=== PATIENT | female | born 1995 | race Caucasian/White ===

== ENCOUNTER 2018-06-01 01:17 | Emergency (ER) | payer OTHER ==
[2018-06-01] MEDS ORDERED: Ondansetron 4 MG/2 ML SDV IVPUSH ONE (01:34)
--- NOTE | 2018-06-01 01:38 | EDM.PDOC ---
ED HPI GENERAL MEDICAL PROBLEM - General Chief Complaint: Drug or Alcohol Abuse Stated Complaint: ALCOHOL OD Time Seen by Provider: 06/01/18 01:30 Source of Information: Reports: Patient, Other (Friends) History Limitations: Reports: Intoxication - History of Present Illness INITIAL COMMENTS - FREE TEXT/NARRATIVE: This is a 22-year-old female. This evening she had 6 vodka red bulls and several beers. Apparently the friends that she with work trying to keep her from falling asleep because they were concerned and they brought her to the ER. When she first arrived she seemed be somewhat anxious but now she is calm down and she wants to go to sleep. She is having some mild dry heaves but not vomiting. She denies any other acute symptoms. She is awake she is alert she does know she is in the hospital. She denies any illicit drug use tonight. - Related Data Allergies Allergy/AdvReac Type Severity Reaction Status Date / Time pollen extracts Allergy Hives Verified 06/01/18 01:24 Past Medical History - Past Health History Medical/Surgical History: Denies Medical/Surgical History Psychiatric History: Reports: Anxiety Social & Family History - Tobacco Use Smoking Status *Q: Current Every Day Smoker Years of Tobacco use: 2 Packs/Tins Daily: 1 - Caffeine Use Caffeine Use: Reports: Energy Drinks ED ROS GENERAL - Review of Systems Review Of Systems: See Below Constitutional: Denies: Fever, Chills HEENT: Reports: No Symptoms Respiratory: Reports: No Symptoms Cardiovascular: Reports: No Symptoms Endocrine: Reports: No Symptoms GI/Abdominal: Reports: Other (As per history of present illness) : Reports: No Symptoms Musculoskeletal: Reports: No Symptoms Skin: Reports: No Symptoms Neurological: Reports: No Symptoms Psychiatric: Reports: No Symptoms Hematologic/Lymphatic: Reports: No Symptoms - Physical Exam Exam: See Below Exam Limited By: Intoxication General Appearance: Alert, WD/WN, No Apparent Distress, Other (Mild gagging noted) Eye Exam: Bilateral Eye: Normal Inspection Ears: Normal External Exam Nose: Normal Inspection Throat/Mouth: Normal Inspection, Normal Lips, No Airway Compromise, Other (Mild slurred speech) Head Exam: Normocephalic Neck: Supple Respiratory/Chest: No Respiratory Distress, Lungs Clear, Normal Breath Sounds Cardiovascular: Regular Rate, Rhythm, No Murmur GI/Abdominal: Soft Neuro Exam (Abbreviated): Alert, Oriented, Other (Patient knows her friends know she is in the hospital) Back Exam: Full Range of Motion Extremities: Normal Inspection, Normal Range of Motion Psychiatric: Normal Affect, Normal Mood Skin Exam: Warm, Dry Course - Vital Signs Last Recorded V/S: Last Vital Signs Temp 97.2 F 06/01/18 01:21 Pulse 129 H 06/01/18 01:21 Resp 20 06/01/18 01:21 BP 151/68 H 06/01/18 01:21 Pulse Ox 100 06/01/18 01:21 - Orders/Labs/Meds Labs: Laboratory Tests 06/01/18 06/01/18 Range/Units 01:30 01:30 HCG, Qual Negative (NEGATIVE) Ethyl Alcohol 0.13 (0.00) gm% Meds: Medications Discontinued Medications Generic Name Dose Route Start Last Admin Trade Name Kit PRN Reason Stop Dose Admin Ondansetron HCl 4 mg 06/01/18 01:34 06/01/18 01:38 Zofran IVPUSH 06/01/18 01:35 4 mg ONETIME ONE Administration - Re-Assessments/Exams Free Text/Narrative Re-Assessment/Exam: 06/01/18 02:40 The patient had a full-blown panic attack. Now she is back to normal laughing and joking and she wants to go home. I spoke to her regarding her alcohol level and her red bull consumption and I believe is probably the combination of the alcohol and the stimulant of the red bull that is producing these panic attacks. She always has had a history of anxiety according to her friends. She feels comfortable to go home and she wants to go home. Departure - Departure Time of Disposition: 02:41 Disposition: Home, Self-Care 01 Condition: Fair Clinical Impression: Alcohol use disorder, Panic attack Alcohol intoxication Qualifiers: Complication of substance-induced condition: uncomplicated Qualified Code(s): F10.920 - Alcohol use, unspecified with intoxication, uncomplicated - Discharge Information *PRESCRIPTION DRUG MONITORING PROGRAM REVIEWED*: Not Applicable *COPY OF PRESCRIPTION DRUG MONITORING REPORT IN PATIENT ALISSA: Not Applicable Forms: ED Department Discharge Additional Instructions: No alcohol or energy drinks for the next 48 hours, go home and sleep and rest for the next 24 hours, follow-up your family doctor next week if desired, return to ER if needed
== END 2018-06-01 02:52 | disposition home or self-care (01) ==
LOC: JD.ED 01:17
DX: F41.0 Panic disorder [episodic paroxysmal anxiety] (principal); F10.120 Alcohol abuse with intoxication, uncomplicated; Y90.0 Blood alcohol level of less than 20 mg/100 ml; F17.210 Nicotine dependence, cigarettes, uncomplicated; Z91.018 Allergy to other foods
CPT/HCPCS: 36415; 84703; 96374; 99284; G0480; J2405

== ENCOUNTER 2020-05-24 16:46 | Emergency (ER) | payer OTHER ==
[2020-05-24] MEDS ORDERED: Sodium Chloride 0.9% 10 ML Syringe FLUSH PRN (17:29)
[2020-05-24] MEDS ORDERED: Sodium Chloride 0.9% 1,000 ML IV STA (17:30)
[2020-05-24] MEDS ORDERED: Ondansetron 4 MG/2 ML SDV IVPUSH ONE (17:30)
--- NOTE | 2020-05-24 17:32 | EDM.PDOC ---
ED HPI GENERAL MEDICAL PROBLEM - General Chief Complaint: Abdominal Pain Stated Complaint: R SIDE PAIN Time Seen by Provider: 05/24/20 16:48 Source of Information: Reports: Patient, RN Notes Reviewed History Limitations: Reports: No Limitations - History of Present Illness INITIAL COMMENTS - FREE TEXT/NARRATIVE: Patient is a 24-year-old female presenting to the emergency department with complaints of right lower quadrant abdominal pain since last evening. She states that the onset of symptoms last evening, she did have one episode of vomiting, but has not vomited thus far today. She describes the pain as a stabbing sensation. She is unable to stand upright without significant discomfort and states that any position changes also causes pain. She denies the possibility of as she is on the Implanon control. She is had no fever or chills. Denies diarrhea. Has had no respiratory complaints. She does feel mildly nauseous now but denies the need for pain medications. Denies any previous abdominal surgeries. 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 Right Abdominal Pain Score (Numeric/FACES): 6 - Related Data Allergies Allergy/AdvReac Type Severity Reaction Status Date / Time pollen extracts Allergy Hives Verified 05/24/20 16:58 Home Meds: Home Meds FLUoxetine [PROzac] 40 mg PO DAILY 05/24/20 [History] Ondansetron [Zofran ODT] 4 mg PO Q6H PRN #10 tab.dis 05/24/20 [Rx] Ondansetron [Zofran Odt] 8 mg PO Q6H PRN 05/24/20 [History] SUMAtriptan [Imitrex] 100 mg PO BID PRN 05/24/20 [History] guanFACINE 1 mg PO DAILY 05/24/20 [History] Past Medical History - Past Health History Medical/Surgical History: Denies Medical/Surgical History Psychiatric History: Reports: Anxiety Social & Family History - Caffeine Use Caffeine Use: Reports: Energy Drinks ED ROS GENERAL - Review of Systems Review Of Systems: See Below Constitutional: Reports: No Symptoms. Denies: Fever, Chills HEENT: Reports: No Symptoms Respiratory: Reports: No Symptoms. Denies: Shortness of Breath, Cough Cardiovascular: Reports: Dyspnea on Exertion GI/Abdominal: Reports: No Symptoms, Abdominal Pain (RLQ), Nausea, Vomiting. Denies: Diarrhea : Reports: No Symptoms Musculoskeletal: Reports: No Symptoms Skin: Reports: No Symptoms Neurological: Reports: No Symptoms Psychiatric: Reports: No Symptoms Hematologic/Lymphatic: Reports: No Symptoms Immunologic: Reports: No Symptoms ED EXAM, GI/ABD - Physical Exam Exam: See Below General Appearance: Alert, WD/WN, No Apparent Distress Respiratory/Chest: No Respiratory Distress, Lungs Clear, Normal Breath Sounds, No Accessory Muscle Use, Chest Non-Tender Cardiovascular: Normal Peripheral Pulses, Regular Rate, Rhythm, No Edema, No Gallop, No JVD, No Murmur, No Rub GI/Abdominal Exam: Normal Bowel Sounds, Soft, No Organomegaly, No Distention, No Abnormal Bruit, No Mass, Pelvis Stable, Tender (RLQ). No: Guarding, Rigid, Rebound Neurological: Alert, Oriented, CN II-XII Intact, Normal Cognition, Normal Gait, Normal Reflexes, No Motor/Sensory Deficits Psychiatric: Normal Affect, Normal Mood Skin Exam: Warm, Dry, Intact, Normal Color, No Rash Course - Vital Signs Last Recorded V/S: Last Vital Signs Temp 97.6 F 05/24/20 17:04 Pulse 69 05/24/20 17:04 Resp 14 05/24/20 17:04 BP 113/74 05/24/20 17:04 Pulse Ox 94 L 05/24/20 17:04 - Orders/Labs/Meds Orders: Active Orders 24 hr Category Date Time Status Peripheral IV Care [RC] . DIRECTED Care 05/24/20 17:29 Active Sodium Chloride 0.9% [Saline Flush] Med 05/24/20 17:29 Active 10 ml FLUSH ASDIRECTED PRN Sodium Chloride 0.9% [Saline Flush] Med 05/24/20 19:30 Active 10 ml FLUSH BOLUS Peripheral IV Insertion Adult [OM.PC] Stat Oth 05/24/20 17:29 Ordered Medication Orders Sodium Chloride (Saline Flush) 10 ml FLUSH ASDIRECTED PRN PRN Reason: Keep Vein Open Last Admin: 05/24/20 17:53 Dose: 10 ml Documented by: TOMY Sodium Chloride (Saline Flush) 10 ml FLUSH BOLUS [facility] Last Admin: 05/24/20 19:38 Dose: 10 ml Documented by: NIGEL Labs: Laboratory Tests 05/24/20 05/24/20 05/24/20 Range/Units 17:35 17:50 17:50 WBC 8.68 (3.98-10.04) K/mm3 RBC 4.85 (3.98-5.22) M/mm3 Hgb 13.4 (11.2-15.7) gm/dl Hct 42.1 (34.1-44.9) % MCV 86.8 (79.4-94.8) fl MCH 27.6 (25.6-32.2) pg MCHC 31.8 L (32.2-35.5) g/dl RDW Std Deviation 45.0 (36.4-46.3) fL Plt Count 367 (182-369) K/mm3 MPV 9.4 (9.4-12.3) fl Neut % (Auto) 52.0 (34.0-71.1) % Lymph % (Auto) 27.5 (19.3-51.7) % Nance % (Auto) 11.9 (4.7-12.5) % Eos % (Auto) 7.5 H (0.7-5.8) Baso % (Auto) 0.8 (0.1-1.2) % Neut # (Auto) 4.51 (1.56-6.13) K/mm3 Lymph # (Auto) 2.39 (1.18-3.74) K/mm3 Nance # (Auto) 1.03 H (0.24-0.36) K/mm3 Eos # (Auto) 0.65 H (0.04-0.36) K/mm3 Baso # (Auto) 0.07 (0.01-0.08) K/mm3 Sodium 143 (136-145) mEq/L Potassium 3.7 (3.5-5.1) mEq/L Chloride 103 (98-107) mEq/L Carbon Dioxide 28 (21-32) mEq/L Anion Gap 15.7 H (5-15) BUN 11 (7-18) mg/dL Creatinine 0.8 (0.55-1.02) mg/dL Est Cr Clr Drug Dosing 90.47 mL/min Estimated GFR (MDRD) > 60 (>60) mL/min BUN/Creatinine Ratio 13.8 L (14-18) Glucose 90 (74-106) mg/dL Calcium 9.5 (8.5-10.1) mg/dL Total Bilirubin 0.5 (0.2-1.0) mg/dL AST 15 (15-37) U/L ALT 24 (14-59) U/L Alkaline Phosphatase 75 (46-116) U/L C-Reactive Protein 1.6 H* (<1.0) mg/dL Total Protein 8.1 (6.4-8.2) g/dl Albumin 3.9 (3.4-5.0) g/dl Globulin 4.2 gm/dL Albumin/Globulin Ratio 0.9 L (1-2) Lipase 74 (73-393) U/L HCG, Qual (NEGATIVE) Urine Color Yellow (Yellow) Urine Appearance Slt cloudy H (Clear) Urine pH 6.0 (5.0-8.0) Ur Specific Coy > or = 1.030 (1.005-1.030) Urine Protein 1+ H (Negative) Urine Glucose (UA) Negative (Negative) Urine Ketones Negative (Negative) Urine Occult Blood Negative (Negative) Urine Nitrite Negative (Negative) Urine Bilirubin Negative (Negative) Urine Urobilinogen 0.2 (0.2-1.0) Ur Leukocyte Esterase Negative (Negative) Urine RBC 0-5 (0-5) /hpf Urine WBC 0-5 (0-5) /hpf Ur Squamous Epith Cells 20-30 H (0-5) /hpf Urine Bacteria Many H (FEW) /hpf Urine Mucus Moderate H (FEW) /hpf 05/24/20 Range/Units 17:50 WBC (3.98-10.04) K/mm3 RBC (3.98-5.22) M/mm3 Hgb (11.2-15.7) gm/dl Hct (34.1-44.9) % MCV (79.4-94.8) fl MCH (25.6-32.2) pg MCHC (32.2-35.5) g/dl RDW Std Deviation (36.4-46.3) fL Plt Count (182-369) K/mm3 MPV (9.4-12.3) fl Neut % (Auto) (34.0-71.1) % Lymph % (Auto) (19.3-51.7) % Nance % (Auto) (4.7-12.5) % Eos % (Auto) (0.7-5.8) Baso % (Auto) (0.1-1.2) % Neut # (Auto) (1.56-6.13) K/mm3 Lymph # (Auto) (1.18-3.74) K/mm3 Nance # (Auto) (0.24-0.36) K/mm3 Eos # (Auto) (0.04-0.36) K/mm3 Baso # (Auto) (0.01-0.08) K/mm3 Sodium (136-145) mEq/L Potassium (3.5-5.1) mEq/L Chloride (98-107) mEq/L Carbon Dioxide (21-32) mEq/L Anion Gap (5-15) BUN (7-18) mg/dL Creatinine (0.55-1.02) mg/dL Est Cr Clr Drug Dosing mL/min Estimated GFR (MDRD) (>60) mL/min BUN/Creatinine Ratio (14-18) Glucose (74-106) mg/dL Calcium (8.5-10.1) mg/dL Total Bilirubin (0.2-1.0) mg/dL AST (15-37) U/L ALT (14-59) U/L Alkaline Phosphatase (46-116) U/L C-Reactive Protein (<1.0) mg/dL Total Protein (6.4-8.2) g/dl Albumin (3.4-5.0) g/dl Globulin gm/dL Albumin/Globulin Ratio (1-2) Lipase (73-393) U/L HCG, Qual Negative (NEGATIVE) Urine Color (Yellow) Urine Appearance (Clear) Urine pH (5.0-8.0) Ur Specific Coy (1.005-1.030) Urine Protein (Negative) Urine Glucose (UA) (Negative) Urine Ketones (Negative) Urine Occult Blood (Negative) Urine Nitrite (Negative) Urine Bilirubin (Negative) Urine Urobilinogen (0.2-1.0) Ur Leukocyte Esterase (Negative) Urine RBC (0-5) /hpf Urine WBC (0-5) /hpf Ur Squamous Epith Cells (0-5) /hpf Urine Bacteria (FEW) /hpf Urine Mucus (FEW) /hpf Meds: Medications Generic Name Dose Route Start Last Admin Trade Name Freq PRN Reason Stop Dose Admin Sodium Chloride 10 ml 05/24/20 17:29 05/24/20 17:53 Saline Flush FLUSH 10 ml ASDIRECTED PRN Administration Keep Vein Open Sodium Chloride 10 ml 05/24/20 19:30 05/24/20 19:38 Saline Flush FLUSH 10 ml BOLUS CRESCENCIO Administration Discontinued Medications Generic Name Dose Route Start Last Admin Trade Name Kit PRN Reason Stop Dose Admin Sodium Chloride 1,000 mls @ 999 mls/hr 05/24/20 17:30 05/24/20 17:52 Normal Saline IV 05/24/20 18:30 999 mls/hr NOW STA Administration Iopamidol 100 ml 05/24/20 18:56 05/24/20 19:38 Isovue-300 (61%) IVPUSH 05/24/20 18:57 100 ml ONETIME ONE Administration Ondansetron HCl 4 mg 05/24/20 17:30 05/24/20 17:54 Zofran IVPUSH 05/24/20 17:31 4 mg ONETIME ONE Administration - Re-Assessments/Exams Free Text/Narrative Re-Assessment/Exam: Patient is a 24-year-old female presenting to the emergency department with complaints of right lower quadrant abdominal pain that began last evening. She had a single episode of vomiting last evening, but has had no further vomiting today. She has had no fever or chills. Denies possibility of . On exam, she does have tenderness to the right lower quadrant, however she has no guarding, rigidity, rebound tenderness. I ordered CBC, CMP, CRP, urinalysis, hCG, and a CT scan of the abdomen pelvis with contrast. 05/24/20 20:00 Hematology was grossly unremarkable. Urinalysis was negative for infection. CT results pending. Patient continues to deny the need for pain medications. 05/24/20 20:04 CT scan of the abdomen pelvis shows no acute abnormalities. Appendix was visualized and is normal. Discussed with patient that she may be suffering from a mild viral gastroenteritis, possible muscle strain. Recommend clear liquid diet for the next 24 hours and then advance as tolerated. I will send a prescription for Zofran to [place] [facility]. Discussed return precautions. Discharge instructions as documented. Departure - Departure Time of Disposition: 20:05 Disposition: Home, Self-Care 01 Condition: Good Clinical Impression: Abdominal pain - Discharge Information *PRESCRIPTION DRUG MONITORING PROGRAM REVIEWED*: No *COPY OF PRESCRIPTION DRUG MONITORING REPORT IN PATIENT ALISSA: No Prescriptions: Ondansetron [Zofran ODT] 4 mg PO Q6H PRN #10 tab.dis PRN Reason: Nausea/Vomiting Instructions: Abdominal Pain, Adult, [id number] Referrals: Preeti Bolanos, NON DESTRUCTIVE TESTER [Primary Care Provider] - Forms: ED Department Discharge Additional Instructions: You were seen in the emergency department today for right-sided abdominal pain since last evening. Your work-up included blood work, urinalysis, and a CT scan of your abdomen pelvis. Results of your work-up were found to be normal. As we discussed, you may be suffering from a mild viral gastroenteritis (stomach flu). Recommend clear liquid diet for the next 24 hours and advance as tolerated. A prescription for Zofran has been sent to [place] [facility] in [place]. Uses medication as needed for nausea. If his symptoms should worsen anyway, recommend return to the emergency department. If they fail to resolve over the next few days, recommend follow-up with your primary care provider. Sepsis Event Note (ED) - Evaluation Sepsis Screening Result: No Definite Risk - Focused Exam Vital Signs: Vital Signs Temp Pulse Resp BP Pulse Ox 05/24/20 17:04 97.6 F 69 14 113/74 94 L - My Orders Last 24 Hours: My Active Orders 05/24/20 17:29 Peripheral IV Care [RC] . DIRECTED Sodium Chloride 0.9% [Saline Flush] 10 ml FLUSH ASDIRECTED PRN Peripheral IV Insertion Adult [OM.PC] Stat 05/24/20 19:30 Sodium Chloride 0.9% [Saline Flush] 10 ml FLUSH BOLUS - Assessment/Plan Last 24 Hours: My Active Orders 05/24/20 17:29 Peripheral IV Care [RC] . DIRECTED Sodium Chloride 0.9% [Saline Flush] 10 ml FLUSH ASDIRECTED PRN Peripheral IV Insertion Adult [OM.PC] Stat 05/24/20 19:30 Sodium Chloride 0.9% [Saline Flush] 10 ml FLUSH BOLUS
[2020-05-24] MEDS ORDERED: Iopamidol 612 MG/ML 100 ML Bottle IVPUSH ONE (18:56)
[2020-05-24] MEDS ORDERED: Sodium Chloride 0.9% 10 ML Syringe FLUSH SCH (19:30)
--- NOTE | 2020-05-24 20:01 | CT ---
CT abdomen and pelvis Technique: Multiple axial sections were obtained from above the dome of the diaphragm inferiorly through the pubic symphysis. Intravenous and oral contrast was utilized. Delayed images were also obtained through the abdomen and pelvis. Reconstructed coronal and sagittal images were obtained. Findings: Visualized lung bases show nothing acute. Liver contains no focal abnormality. Spleen appears within normal limits. Adrenal glands show no discrete nodule. Kidneys show symmetric contrast enhancement with no hydronephrosis or mass. Delayed images show contrast within the ureters and the bladder. Pancreas appears within normal limits. Gallbladder contains no calcified gallstones. Abdominal aorta shows no aneurysm. No retroperitoneal adenopathy or mesenteric abnormalities are seen. Minimal fat-containing umbilical hernia is noted. Appendix is seen which is normal. No pelvic mass or adenopathy is appreciated. No inflammatory change or other abnormality is appreciated. Bone window settings were reviewed which show no acute abnormality. Impression: 1. Nothing acute is appreciated on CT study of the abdomen and pelvis. Diagnostic code #1
== END 2020-05-24 20:10 | disposition home or self-care (01) ==
LOC: JD.ED 16:46
DX: R10.31 Right lower quadrant pain (principal); Z91.048 Other nonmedicinal substance allergy status
CPT/HCPCS: 36415; 74177; 80053; 81001; 83690; 84703; 85025; 86140; 96374; 99284; J2405; J7030; Q9967

== ENCOUNTER 2021-05-21 09:08 | Emergency (ER) | payer OTHER | END 2021-05-21 12:14 | disposition home or self-care (01) | LOC: JD.ED 09:08 | DX: O20.9 Hemorrhage in early pregnancy, unspecified (principal); Z91.048 Other nonmedicinal substance allergy status; Z3A.01 Less than 8 weeks gestation of pregnancy | CPT/HCPCS: 36415; 76817; 76817-26; 81001; 84702; 85025; 86850; 86900; 86901; 99284; 99284-25 ==

== ENCOUNTER 2022-03-21 06:22 | Day surgery (SDC) | payer OTHER ==
[~2022-03-21 06:22] MED LIST: Lactated Ringers 1,000 ML IV SCH; Lidocaine 1%/Sod Bicarbonate in NS 8.4% 1 ML Syringe IDERM PRN; Sodium Chloride 0.9% 10 ML Syringe FLUSH PRN; Sodium Chloride 0.9% 10 ML Syringe FLUSH SCH
[2022-03-21] MEDS ORDERED: Lidocaine 1% 4 ML ONE (06:58)
[2022-03-21] MEDS ORDERED: fentaNYL 100 MCG/2 ML SDV ONE (06:58)
[2022-03-21] MEDS ORDERED: Propofol 200 MG/20 ML SDV ONE (06:58)
== END 2022-03-21 08:35 | disposition home or self-care (01) ==
LOC: JD.SDS 06:22
PROVIDERS: ATTEND Surgery
DX: K21.9 Gastro-esophageal reflux disease without esophagitis (principal); K31.89 Other diseases of stomach and duodenum; J30.9 Allergic rhinitis, unspecified; F41.9 Anxiety disorder, unspecified; F32.A Depression, unspecified; G43.909 Migraine, unspecified, not intractable, without status migrainosus; E55.9 Vitamin D deficiency, unspecified; E66.9 Obesity, unspecified; F17.210 Nicotine dependence, cigarettes, uncomplicated; Z79.899 Other long term (current) drug therapy; Z68.33 Body mass index [BMI] 33.0-33.9, adult; Z91.048 Other nonmedicinal substance allergy status
CPT/HCPCS: 43239; 81025; J2704; J3010; J7120; 00731

== ENCOUNTER 2023-04-01 01:56 | Inpatient (IN) | payer OTHER ==
[~2023-04-01 01:56] MED LIST changes: -Lactated Ringers 1,000 ML IV SCH; +Lidocaine 1% 10 ML MDV ONE; -Lidocaine 1%/Sod Bicarbonate in NS 8.4% 1 ML Syringe IDERM PRN; -Sodium Chloride 0.9% 10 ML Syringe FLUSH PRN; -Sodium Chloride 0.9% 10 ML Syringe FLUSH SCH
[2023-04-01] MEDS ORDERED: Sodium Chloride 0.9% 10 ML Syringe FLUSH PRN ×2 (02:43→18:32)
[2023-04-01] MEDS ORDERED: Nalbuphine HCl 10 MG/ 1ML Amp IVPUSH PRN (02:43)
[2023-04-01] MEDS ORDERED: Lidocaine 1% 50 ML MDV INJECT PRN (02:43)
[2023-04-01] MEDS ORDERED: Ondansetron 4 MG/2 ML SDV IVPUSH PRN ×2 (02:50→20:41)
[2023-04-01] MEDS: Lactated Ringers 1,000 ML IV SCH ×4 (03:00→18:14)
[2023-04-01 03:09] LABS: BASOPHILS ABSOLUTE AUTO 0.1 K/mm3 (0.0-0.2); BASOPHILS PERCENT AUTO 0.4 % (0.0-1.0); EOSINOPHILS ABSOLUTE AUTO 0.4 K/mm3 (0.0-0.4); EOSINOPHILS PERCENT AUTO 3.5 % (0.0-6.0); HEMATOCRIT 35.9 % (37.0-47.0); HEMOGLOBIN 11.8 gm/dl (12.0-16.0); IMMATURE GRAN ABSOLUTE AUTO 0.04 K/mm3 (0.00-0.05); IMMATURE GRAN PERCENT AUTO 0.4 % (0.0-0.4); LYMPHOCYTES ABSOLUTE AUTO 2.1 K/mm3 (1.0-4.8); MEAN CORPUSCULAR HEMOGLOBIN 28.7 pg (28.0-32.0); MEAN CORPUSCULAR HGB CONC 32.9 g/dl (32.0-36.0); MEAN CORPUSCULAR VOLUME 87.3 fl (83.0-99.0); MEAN PLATELET VOLUME 8.9 fl (9.4-12.3); MONOCYTES ABSOLUTE AUTO 1.2 K/mm3 (0.0-0.8); MONOCYTES PERCENT AUTO 10.2 % (0.0-8.0); NEUTROPHILS ABSOLUTE AUTO 7.5 K/mm3 (1.8-7.7); NEUTROPHILS PERCENT AUTO 66.5 % (41.0-71.0); PLATELET COUNT,PLT 246 K/mm3 (150-400); RED BLOOD CELL COUNT 4.11 M/mm3 (4.10-5.30); WHITE BLOOD CELL COUNT,WBC 11.28 K/mm3 (3.9-11.3)
[2023-04-01] MEDS ORDERED: ePHEDrine 50 MG/ML SDV IVPUSH PRN ×2 (04:38→22:49)
[2023-04-01] MEDS ORDERED: diphenhydrAMINE 50 MG/ML SDV IVPUSH PRN ×3 (04:38→22:49)
[2023-04-01] MEDS ORDERED: Oxytocin/Lactated Ringers 30 UNIT/500 ML BAG IV SCH ×2 (05:00→06:30)
[2023-04-01] MEDS: fentaNYL 100 MCG/2 ML SDV EPIDUR PRN ×3 (07:23→13:35)
[2023-04-01] MEDS: Bupivacaine/fentaNYL/NS 100 ML Bag EPIDUR PRN ×2 (07:25→13:55)
[2023-04-01] MEDS ORDERED: Sodium Chloride 0.9% 10 ML Syringe FLUSH SCH ×2 (09:00→21:00)
[2023-04-01] MEDS ORDERED: dexmedeTOMIDine HCl 200 MCG/2 ML SDV ONE (09:05)
[2023-04-01] MEDS ORDERED: fentaNYL 100 MCG/2 ML SDV ONE ×4 (09:05→19:49)
[2023-04-01] MEDS ORDERED: Ketorolac 30 MG/ML SDV ONE ×3 (09:17→20:16)
[2023-04-01] MEDS ORDERED: Bupivacaine 0.5% 10 ML SDV ONE ×2 (13:22→19:10)
[2023-04-01] MEDS ORDERED: Lidocaine 2% with EPINEPHrine 1:200,000 20 ML SDV ONE (13:23)
[2023-04-01] MEDS ORDERED: Sodium Bicarbonate 8.4% 50 MEQ/50 ML SDV ONE (17:13)
[2023-04-01] MEDS ORDERED: Neostigmine Methylsulfate 10 MG/10 ML MDV ONE (17:32)
[2023-04-01] MEDS ORDERED: Acetaminophen 325 MG Tab PO ONE (18:22)
[2023-04-01] MEDS ORDERED: Metoclopramide 10 MG/2 ML SDV IVPUSH ONE (18:32)
[2023-04-01] MEDS ORDERED: Citric Acid/Sodium Citrate Solution 30 ML Cup PO ONE (18:32)
[2023-04-01] MEDS ORDERED: Azithromycin 500 MG in Sodium Chloride 0.9% 250 ML IV ONE (18:32)
[2023-04-01] MEDS ORDERED: ceFAZolin 2 GM in Sodium Chloride 0.9% 50 ML IV ONE (18:32)
[2023-04-01] MEDS ORDERED: Lactated Ringers 1,000 ML IV SCH (18:45)
[2023-04-01] MEDS ORDERED: ceFAZolin 2 GM Vial ONE (19:28)
[2023-04-01] MEDS ORDERED: Bupivacaine 0.5% 30 ML SDV ONE (19:42)
[2023-04-01] MEDS ORDERED: Lactated Ringers 1,000 ML ONE ×2 (19:50)
[2023-04-01] MEDS ORDERED: Morphine PF 10 MG/10 ML SDV ONE (19:57)
[2023-04-01] MEDS ORDERED: Ondansetron 4 MG/2 ML SDV ONE (20:00)
[2023-04-01] MEDS ORDERED: fentaNYL 100 MCG/2 ML SDV IVPUSH PRN (20:41)
[2023-04-01] MEDS ORDERED: Naloxone 0.4 MG/ML SDV IVPUSH PRN (22:49)
[2023-04-01] MEDS ORDERED: Dextrose 5%-Lactated Ringers 1,000 ML IV SCH (22:49)
[2023-04-01] MEDS ORDERED: Acetaminophen/oxyCODONE 325-5 MG Tab PO PRN (22:49)
[2023-04-01] MEDS ORDERED: Magnesium Hydroxide 400 MG/5 ML Susp 30 ML Cup PO PRN (22:49)
[2023-04-01] MEDS ORDERED: Measles, Mumps & Rubella Vaccine 0.5 ML SDV SUBCUT ONE (22:49)
[2023-04-02] MEDS ORDERED: Ketorolac 30 MG/ML SDV IVPUSH SCH (02:00)
[2023-04-02 06:06] LABS: BASOPHILS ABSOLUTE AUTO 0.1 K/mm3 (0.0-0.2); BASOPHILS PERCENT AUTO 0.4 % (0.0-1.0); EOSINOPHILS ABSOLUTE AUTO 0.2 K/mm3 (0.0-0.4); EOSINOPHILS PERCENT AUTO 1.4 % (0.0-6.0); HEMATOCRIT 28.3 % (37.0-47.0); IMMATURE GRAN ABSOLUTE AUTO 0.06 K/mm3 (0.00-0.05); IMMATURE GRAN PERCENT AUTO 0.4 % (0.0-0.4); LYMPHOCYTES ABSOLUTE AUTO 1.9 K/mm3 (1.0-4.8); LYMPHOCYTES PERCENT AUTO 13.9 % (24.0-44.0); MEAN CORPUSCULAR HEMOGLOBIN 29.1 pg (28.0-32.0); MEAN CORPUSCULAR HGB CONC 32.9 g/dl (32.0-36.0); MEAN CORPUSCULAR VOLUME 88.4 fl (83.0-99.0); MEAN PLATELET VOLUME 8.8 fl (9.4-12.3); MONOCYTES ABSOLUTE AUTO 1.4 K/mm3 (0.0-0.8); NEUTROPHILS ABSOLUTE AUTO 10.3 K/mm3 (1.8-7.7); NEUTROPHILS PERCENT AUTO 73.9 % (41.0-71.0); PLATELET COUNT,PLT 204 K/mm3 (150-400); WHITE BLOOD CELL COUNT,WBC 13.98 K/mm3 (3.9-11.3)
[2023-04-02 06:10] LABS: HEMOGLOBIN 9.3 gm/dl (12.0-16.0)
[2023-04-02] MEDS: Ketorolac 30 MG/ML SDV IVPUSH SCH ×2 (11:55→18:11)
[2023-04-02] MEDS: Prenatal Multivitamin with Calcium/Folic Acid/Iron Tab PO SCH ×2 (11:55→12:03)
[2023-04-02] MEDS: Docusate Sodium 100 MG Cap PO SCH ×3 (11:56→23:56)
[2023-04-02] MEDS: Sertraline 50 MG Tab PO SCH (12:02)
[2023-04-02] MEDS: Acetaminophen/oxyCODONE 325-5 MG Tab PO PRN ×2 (16:21→23:54)
[2023-04-03] MEDS: Acetaminophen/oxyCODONE 325-5 MG Tab PO PRN ×3 (00:29→19:29)
[2023-04-03] MEDS: Ibuprofen 600 MG Tab PO PRN ×3 (04:24→22:47)
[2023-04-03] MEDS: Docusate Sodium 100 MG Cap PO SCH (10:55)
[2023-04-03] MEDS: Sertraline 50 MG Tab PO SCH (10:56)
[2023-04-03] MEDS: Prenatal Multivitamin with Calcium/Folic Acid/Iron Tab PO SCH (10:56)
[2023-04-04] MEDS: Acetaminophen/oxyCODONE 325-5 MG Tab PO PRN ×2 (01:15→11:38)
[2023-04-04] MEDS: Docusate Sodium 100 MG Cap PO SCH ×2 (01:16→11:34)
[2023-04-04] MEDS: Ibuprofen 600 MG Tab PO PRN (07:34)
[2023-04-04] MEDS: Prenatal Multivitamin with Calcium/Folic Acid/Iron Tab PO SCH (11:34)
[2023-04-04] MEDS: Sertraline 50 MG Tab PO SCH (11:34)
== END 2023-04-04 11:50 | disposition home or self-care (01) | DRG 787 ==
LOC: JD.OBCHECK 01:56 → JD.OB 02:01 → JD.OBCHECK 02:40 → JD.OB 02:40 → OBSVTOIN 19:55 → JD.OB 04-02 00:04
PROVIDERS: ADMIT Obstetrics & Gynecology; ATTEND Obstetrics & Gynecology
PROC: 10D00Z1 Extraction of Products of Conception, Low, Open Approach (ICD-10-PCS; principal; 2023-04-01 19:30)
DX: O48.0 Post-term pregnancy (principal); O99.354 Diseases of the nervous system complicating childbirth; O42.02 Full-term premature rupture of membranes, onset of labor within 24 hours of rupture; F32.A Depression, unspecified; G43.909 Migraine, unspecified, not intractable, without status migrainosus; O99.214 Obesity complicating childbirth; O67.9 Intrapartum hemorrhage, unspecified; O99.344 Other mental disorders complicating childbirth; Z88.8 Allergy status to other drugs, medicaments and biological substances; Z37.0 Single live birth; Z3A.40 40 weeks gestation of pregnancy; Z11.52 Encounter for screening for COVID-19; Z91.018 Allergy to other foods
CPT/HCPCS: 01965; 01967; 01968; 36415; 51702; 59025; 59414; 85025; 86592; 86850; 86900; 86901; 94762; 99140; A9270-GY; J0456; J0690; J1885; J2274; J2300; J2405; J2710; J2765; J3010; J3490; J7050; J7120; J7999

== ENCOUNTER 2023-09-22 19:55 | Emergency (ER) | payer BC, OTHER ==
[2023-09-22 22:14] LABS: BASOPHILS ABSOLUTE AUTO 0.1 K/mm3 (0.0-0.2); BASOPHILS PERCENT AUTO 0.7 % (0.0-1.0); EOSINOPHILS ABSOLUTE AUTO 0.7 K/mm3 (0.0-0.4); EOSINOPHILS PERCENT AUTO 5.6 % (0.0-6.0); HEMATOCRIT 43.3 % (37.0-47.0); HEMOGLOBIN 13.6 gm/dl (12.0-16.0); IMMATURE GRAN ABSOLUTE AUTO 0.02 K/mm3 (0.00-0.05); IMMATURE GRAN PERCENT AUTO 0.2 % (0.0-0.4); LYMPHOCYTES ABSOLUTE AUTO 3.1 K/mm3 (1.0-4.8); LYMPHOCYTES PERCENT AUTO 26.2 % (24.0-44.0); MEAN CORPUSCULAR HEMOGLOBIN 26.8 pg (28.0-32.0); MEAN CORPUSCULAR HGB CONC 31.4 g/dl (32.0-36.0); MEAN CORPUSCULAR VOLUME 85.2 fl (83.0-99.0); MEAN PLATELET VOLUME 9.4 fl (9.4-12.3); MONOCYTES PERCENT AUTO 8.7 % (0.0-8.0); NEUTROPHILS PERCENT AUTO 58.6 % (41.0-71.0); PLATELET COUNT,PLT 346 K/mm3 (150-400); RED BLOOD CELL COUNT 5.08 M/mm3 (4.10-5.30); WHITE BLOOD CELL COUNT,WBC 11.85 K/mm3 (3.9-11.3)
[2023-09-22 22:16] LABS: APPEARANCE,URINE CLEAR (Clear); BILIRUBIN,URINE NEGATIVE (Negative); COLOR,URINE YELLOW (Yellow); GLUCOSE,URINE NEGATIVE (Negative); KETONES,URINE TRACE (Negative); LEUKOCYTE ESTERASE,URINE NEGATIVE (Negative); NITRITE,URINE NEGATIVE (Negative); OCCULT BLOOD,URINE NEGATIVE (Negative); PH,URINE 6.5 (5.0-8.0); PROTEIN,URINE NEGATIVE (Negative); UROBILINOGEN,URINE 0.2 (0.2-1.0)
[2023-09-22 22:23] LABS: A/G RATIO 0.9 (1-2); ALBUMIN 3.8 g/dl (3.4-5.0); ANION GAP 11.7 (5-15); BILIRUBIN TOTAL 0.5 mg/dL (0.2-1.0); BUN/CREATININE RATIO 13.8 (14-18); CALCIUM 9.2 mg/dL (8.5-10.1); CREATININE 0.8 mg/dL (0.55-1.02); EST CRCL DRUG DOSING (CG) 88.15 mL/min; POTASSIUM,K 3.7 mEq/L (3.5-5.1); PROTEIN TOTAL,TP 8.1 g/dl (6.4-8.2)
[2023-09-22] MEDS: Ondansetron 4 MG/2 ML SDV IVPUSH ONE (22:42)
[2023-09-22] MEDS: Lactated Ringers 1,000 ML IV ONE (22:44)
[2023-09-22] MEDS: Iopamidol 612 MG/ML 100 ML Bottle IVPUSH ONE (23:09)
[2023-09-22] MEDS: Sodium Chloride 0.9% 10 ML Syringe FLUSH PRN (23:10)
[2023-09-23] MEDS: Ketorolac 15 MG/ML SDV IVPUSH ONE (00:27)
== END 2023-09-23 01:03 | disposition home or self-care (01) ==
LOC: JD.ED 19:55
DX: Z77.21 Contact with and (suspected) exposure to potentially hazardous body fluids (principal); Z91.018 Allergy to other foods; Z91.048 Other nonmedicinal substance allergy status; Z79.899 Other long term (current) drug therapy; Z87.891 Personal history of nicotine dependence
CPT/HCPCS: 36415; 74177; 80053; 81003; 81025; 83690; 85025; 96361; 96374; 96375; 99284; J1885; J2405; J3490; J7120; Q9967

== ENCOUNTER 2024-03-26 08:31 | Emergency (ER) | payer BC ==
[2024-03-26] MEDS: Sodium Chloride 0.9% 10 ML Syringe FLUSH PRN (09:34)
[2024-03-26] MEDS: methylPREDNISolone Sodium Succinate 125 MG/2 ML SDV IVPUSH ONE (09:34)
[2024-03-26] MEDS: Famotidine 20 MG/2 ML SDV IVPUSH ONE (09:35)
[2024-03-26] MEDS: diphenhydrAMINE 50 MG/ML SDV IVPUSH ONE (09:35)
== END 2024-03-26 10:57 | disposition home or self-care (01) ==
LOC: JD.ED 08:31
DX: L50.9 Urticaria, unspecified (principal); T45.0X5A Adverse effect of antiallergic and antiemetic drugs, initial encounter; E66.9 Obesity, unspecified; Z88.8 Allergy status to other drugs, medicaments and biological substances; Z91.018 Allergy to other foods; Z91.048 Other nonmedicinal substance allergy status; Z79.899 Other long term (current) drug therapy; Z68.34 Body mass index [BMI] 34.0-34.9, adult
CPT/HCPCS: 96374; 96375; 99282; J1200; J2919; J3490; 99283

== ENCOUNTER 2024-07-14 21:39 | Emergency (ER) | payer BC ==
[2024-07-14] MEDS ORDERED: Sodium Chloride 0.9% 10 ML Syringe FLUSH PRN (22:16)
[2024-07-14 22:25] LABS: EOSINOPHILS ABSOLUTE AUTO 0.1 K/mm3 (0.0-0.4); EOSINOPHILS PERCENT AUTO 1.4 % (0.0-6.0); HEMATOCRIT 38.3 % (37.0-47.0); HEMOGLOBIN 12.1 gm/dl (12.0-16.0); IMMATURE GRAN ABSOLUTE AUTO 0.02 K/mm3 (0.00-0.05); IMMATURE GRAN PERCENT AUTO 0.3 % (0.0-0.4); LYMPHOCYTES ABSOLUTE AUTO 2.2 K/mm3 (1.0-4.8); LYMPHOCYTES PERCENT AUTO 31.7 % (24.0-44.0); MEAN CORPUSCULAR HGB CONC 31.6 g/dl (32.0-36.0); MEAN CORPUSCULAR VOLUME 79.1 fl (83.0-99.0); MEAN PLATELET VOLUME 9.1 fl (9.4-12.3); MONOCYTES ABSOLUTE AUTO 0.5 K/mm3 (0.0-0.8); MONOCYTES PERCENT AUTO 7.7 % (0.0-8.0); NEUTROPHILS ABSOLUTE AUTO 4.1 K/mm3 (1.8-7.7); NEUTROPHILS PERCENT AUTO 58.9 % (41.0-71.0); PLATELET COUNT,PLT 333 K/mm3 (150-400); RED BLOOD CELL COUNT 4.84 M/mm3 (4.10-5.30); WHITE BLOOD CELL COUNT,WBC 7.03 K/mm3 (3.9-11.3)
[2024-07-14 22:54] LABS: A/G RATIO 0.7 (1-2); ALANINE AMINOTRANSFERASE,ALT 36 U/L (14-59); ALBUMIN 3.2 g/dl (3.4-5.0); ALKALINE PHOSPHATASE 114 U/L (46-116); ANION GAP 11.5 (5-15); ASPARTATE AMNIOTRANSFERASE,AST 19 U/L (15-37); BILIRUBIN TOTAL 0.5 mg/dL (0.2-1.0); BLOOD UREA NITROGEN,BUN 10 mg/dL (7-18); BUN/CREATININE RATIO 14.3 (14-18); CALCIUM 8.9 mg/dL (8.5-10.1); CARBON DIOXIDE,CO2 27 mEq/L (21-32); CHLORIDE,CL 105 mEq/L (98-107); CREATININE 0.7 mg/dL (0.55-1.02); EST CRCL DRUG DOSING (CG) 99.86 mL/min; ESTIMATED GFR 121 mL/min (>60); GLUCOSE RANDOM 99 mg/dL (70-99); POTASSIUM,K 3.5 mEq/L (3.5-5.1); PROTEIN TOTAL,TP 7.6 g/dl (6.4-8.2); SODIUM,NA 140 mEq/L (136-145)
[2024-07-14] MEDS: Sodium Chloride 0.9% 1,000 ML IV ONE (23:02)
[2024-07-14] MEDS: methylPREDNISolone Sodium Succinate 125 MG/2 ML SDV IVPUSH ONE (23:03)
[2024-07-14] MEDS: diphenhydrAMINE 50 MG/ML SDV IVPUSH ONE (23:04)
[2024-07-14 23:48] LABS: TSH < 0.007 uIU/mL (0.358-3.74)
[2024-07-14 23:50] LABS: T4 FREE 2.13 ng/dL (0.76-1.46)
[2024-07-15] MEDS: Famotidine 20 MG/2 ML SDV IVPUSH ONE (00:15)
== END 2024-07-15 00:55 | disposition home or self-care (01) ==
LOC: JD.ED 21:39
DX: L50.9 Urticaria, unspecified (principal); Z91.048 Other nonmedicinal substance allergy status; Z91.018 Allergy to other foods; Z88.8 Allergy status to other drugs, medicaments and biological substances; Z79.899 Other long term (current) drug therapy
CPT/HCPCS: 36415; 80053; 82306; 82607; 84439; 84443; 84703; 85025; 96361; 96374; 96375; 99283; J1200; J2919; J7030

== ENCOUNTER 2024-07-22 16:02 | Emergency (ER) | payer BC ==
[2024-07-22] MEDS: Sodium Chloride 0.9% 1,000 ML IV STA (16:50)
[2024-07-22] MEDS: diphenhydrAMINE 50 MG/ML SDV IVPUSH ONE (16:50)
[2024-07-22] MEDS: methylPREDNISolone Sodium Succinate 125 MG/2 ML SDV IVPUSH ONE (16:50)
[2024-07-22] MEDS: Famotidine 20 MG/2 ML SDV IVPUSH ONE (16:50)
== END 2024-07-22 18:20 | disposition home or self-care (01) ==
LOC: JD.ED 16:02
DX: L50.9 Urticaria, unspecified (principal); E66.9 Obesity, unspecified; Z91.018 Allergy to other foods; Z88.8 Allergy status to other drugs, medicaments and biological substances; Z91.048 Other nonmedicinal substance allergy status; Z79.899 Other long term (current) drug therapy; Z68.33 Body mass index [BMI] 33.0-33.9, adult
CPT/HCPCS: 96374; 96375; 99283; J1200; J2919; J7030; 99282

== ENCOUNTER 2024-08-27 09:08 | Emergency (ER) | payer BC ==
[2024-08-27] MEDS: Dexamethasone 6 MG TABLET PO ONE (10:26)
== END 2024-08-27 09:55 | disposition home or self-care (01) ==
LOC: JD.ED 09:08
DX: L50.8 Other urticaria (principal); E66.9 Obesity, unspecified; Z79.899 Other long term (current) drug therapy; Z91.048 Other nonmedicinal substance allergy status; Z91.018 Allergy to other foods; Z88.8 Allergy status to other drugs, medicaments and biological substances
CPT/HCPCS: 99283; J8540

== ENCOUNTER 2024-12-07 23:32 | Inpatient (IN) | payer BC ==
[2024-12-07] MEDS ORDERED: Naloxone 0.4 MG/ML SDV IVPUSH PRN (23:55)
[2024-12-07] MEDS ORDERED: Sodium Chloride 0.9% 10 ML Syringe FLUSH PRN (23:58)
[2024-12-07 23:59] LABS: BASOPHILS ABSOLUTE AUTO 0.1 K/mm3 (0.0-0.2); BASOPHILS PERCENT AUTO 0.9 % (0.0-1.0); EOSINOPHILS ABSOLUTE AUTO 0.1 K/mm3 (0.0-0.4); EOSINOPHILS PERCENT AUTO 1.6 % (0.0-6.0); IMMATURE GRAN ABSOLUTE AUTO 0.03 K/mm3 (0.00-0.05); IMMATURE GRAN PERCENT AUTO 0.3 % (0.0-0.4); LYMPHOCYTES ABSOLUTE AUTO 3.4 K/mm3 (1.0-4.8); LYMPHOCYTES PERCENT AUTO 38.5 % (24.0-44.0); MEAN PLATELET VOLUME 8.9 fl (9.4-12.3); MONOCYTES ABSOLUTE AUTO 1.0 K/mm3 (0.0-0.8); MONOCYTES PERCENT AUTO 10.8 % (0.0-8.0); NEUTROPHILS ABSOLUTE AUTO 4.3 K/mm3 (1.8-7.7); NEUTROPHILS PERCENT AUTO 47.9 % (41.0-71.0); NRBC ABSOLUTE 0.00 (0.00-0.02); NRBC PERCENT 0.0 % (0.0-0.2); PLATELET COUNT,PLT 284 K/mm3 (150-400); RED BLOOD CELL COUNT 4.80 M/mm3 (4.10-5.30); WHITE BLOOD CELL COUNT,WBC 8.92 K/mm3 (3.9-11.3)
[2024-12-08] MEDS: Ondansetron 4 MG/2 ML SDV IVPUSH ONE (00:02)
[2024-12-08 00:24] LABS: A/G RATIO 1.0 (1-2); ALANINE AMINOTRANSFERASE,ALT 20.0 U/L (14-59); ASPARTATE AMNIOTRANSFERASE,AST 11.0 U/L (15-37); BILIRUBIN TOTAL 0.5 mg/dL (0.2-1.0); BLOOD UREA NITROGEN,BUN 12.0 mg/dL (7-18); CARBON DIOXIDE,CO2 26.0 mEq/L (21-32); CHLORIDE,CL 103.0 mEq/L (98-107); CREATININE 0.7 mg/dL (0.55-1.02); EST CRCL DRUG DOSING (CG) 116.35 mL/min; ESTIMATED GFR 121.0 mL/min (>60); GLUCOSE RANDOM 107.0 mg/dL (70-99); POTASSIUM,K 3.5 mEq/L (3.5-5.1); PROTEIN TOTAL,TP 7.2 g/dl (6.4-8.2); SODIUM,NA 139.0 mEq/L (136-145)
[2024-12-08] MEDS: Iopamidol 612 MG/ML 100 ML Bottle IVPUSH ONE (00:56)
[2024-12-08] MEDS: Sodium Chloride 0.9% 10 ML Syringe FLUSH PRN (00:56)
[2024-12-08] MEDS: fentaNYL 100 MCG/2 ML SDV IVPUSH ONE (01:42)
[2024-12-08 01:59] LABS: APPEARANCE,URINE CLEAR (Clear); GLUCOSE,URINE NEGATIVE (Negative); OCCULT BLOOD,URINE NEGATIVE (Negative)
[2024-12-08] MEDS: Ketorolac 30 MG/ML SDV IVPUSH ONE (03:25)
[2024-12-08] MEDS: fentaNYL 100 MCG/2 ML SDV IVPUSH PRN (05:06)
[2024-12-08] MEDS: metroNIDAZOLE/Normal Saline 500 MG in Premix Bag 1 BAG IV SCH (10:06)
[2024-12-08] MEDS: Heparin Sodium 5,000 Units/ML Vial SUBCUT SCH (10:06)
[2024-12-08] MEDS: Ketorolac 30 MG/ML SDV IVPUSH SCH (10:06)
[2024-12-09] MEDS ORDERED: dexmedeTOMIDine HCl 200 MCG/2 ML SDV ONE (08:09)
[2024-12-09] MEDS ORDERED: Lactated Ringers 1,000 ML ONE (08:09)
[2024-12-09] MEDS ORDERED: Propofol 200 MG/20 ML SDV ONE (08:09)
[2024-12-09] MEDS ORDERED: fentaNYL 250 MCG/5 ML SDV ONE (08:09)
[2024-12-09] MEDS ORDERED: Midazolam 1 MG/ML 2 ML SDV ONE (08:09)
[2024-12-09] MEDS ORDERED: Ondansetron 4 MG/2 ML SDV ONE (08:09)
[2024-12-09] MEDS ORDERED: Dexamethasone 4 MG/ML 5 ML MDV ONE (10:02)
[2024-12-09] MEDS: Iopamidol 612 MG/ML 30 ML SDV ONE (10:09)
[2024-12-09] MEDS: Sodium Chloride 0.9% 50 ML SDV ONE (10:09)
[2024-12-09] MEDS ORDERED: Ketorolac 30 MG/ML SDV ONE (10:11)
[2024-12-09] MEDS ORDERED: Ondansetron 4 MG/2 ML SDV IVPUSH PRN (10:17)
[2024-12-09] MEDS ORDERED: fentaNYL 100 MCG/2 ML SDV IVPUSH PRN (10:17)
[2024-12-09] MEDS ORDERED: Heparin Sodium 5,000 Units/ML Vial SUBCUT SCH (11:15)
[2024-12-09] MEDS ORDERED: Ketorolac 30 MG/ML SDV IVPUSH SCH (11:15)
[2024-12-09] MEDS: Lactated Ringers 1,000 ML IV SCH (12:44)
[2024-12-09] MEDS: Ondansetron 4 MG/2 ML SDV IVPUSH PRN (13:11)
== END 2024-12-10 08:00 | disposition home or self-care (01) | DRG 263 ==
LOC: JD.ED 23:32 → JD.MS 12-08 07:12
PROVIDERS: ADMIT Family Medicine; ATTEND Surgery
PROC: 0FT44ZZ Resection of Gallbladder, Percutaneous Endoscopic Approach (ICD-10-PCS; principal; 2024-12-08)
PROC: 0WQF4ZZ Repair Abdominal Wall, Percutaneous Endoscopic Approach (ICD-10-PCS; principal; 2024-12-08)
DX: K81.0 Acute cholecystitis (principal); K59.09 Other constipation; K21.9 Gastro-esophageal reflux disease without esophagitis; G43.909 Migraine, unspecified, not intractable, without status migrainosus; F90.9 Attention-deficit hyperactivity disorder, unspecified type; K42.9 Umbilical hernia without obstruction or gangrene; F41.9 Anxiety disorder, unspecified; E05.90 Thyrotoxicosis, unspecified without thyrotoxic crisis or storm; F32.A Depression, unspecified; E66.9 Obesity, unspecified; Z68.34 Body mass index [BMI] 34.0-34.9, adult; Z79.899 Other long term (current) drug therapy; Z88.8 Allergy status to other drugs, medicaments and biological substances; Z87.891 Personal history of nicotine dependence
CPT/HCPCS: 00790; 36415; 74177; 74177-26; 76000; 76000-26; 76705; 76705-26; 80053; 81003; 83690; 84703; 85025; 96361; 96374; 96375; 96376; 99285-25; A9270-GY; J0696; J1100; J1171; J1644; J1836; J1885; J2003; J2250; J2270; J2405; J2704; J3010; J3490; J7030; J7120; Q9967